=== PATIENT | female | born 1955 | race Hispanic/Latino ===

== ENCOUNTER 2017-02-07 09:05 | Outpatient (CLI) | payer OTHER ==
[2017-02-07 09:37] LABS: Hemoglobin A1c 5.8 % (4.0-6.0)
[2017-02-07 09:46] LABS: #Basophils 0.1 thou/uL (0.0-0.2); #Eosinphils 0.3 thou/uL (0.0-0.7); #Monocytes 0.5 thou/uL (0.11-0.59); #Neutrophils 4.1 thou/uL (1.40-6.50); %Basophils 1.5 % (0.0-1.0); %Eosinophils 4.1 % (0.0-10.0); %Lymphocytes 36.7 % (21.0-51.0); %Monocytes 6.4 % (0.0-10.0); %Neutrophils 51.3 % (42.0-75.0); Hemoglobin 13.6 g/dL (12.0-16.0); Mean Corpuscular HGB CONC 33.6 g/dL (32.0-36.0); Mean Corpuscular Hemoglobin 29.3 pg (27.0-31.0); Mean Corpuscular Volume 87.2 fl (81.0-99.0); Mean Platelet Volume 7.1 fL (7.4-10.4); Platelet Count 325 thou/uL (130-400); RBC Distribution Width 11.9 % (11.5-14.5); Red Blood Cell (RBC) Count 4.65 mill/uL (4.20-5.40); White Blood Cell (WBC) Count 8.1 thou/uL (4.8-10.8)
[2017-02-07 10:22] LABS: ALT (SGPT) 21 U/L (8-55); AST (SGOT) 17 U/L (5-34); Albumin 4.2 g/dL (3.5-5.0); Alkaline Phosphatase 88 U/L (40-150); Anion Gap 14 mmol/L (10-20); BUN (Urea Nitrogen) 17 mg/dL (9.8-20.1); Bilirubin, Total 0.5 mg/dL (0.2-1.2); Calc. Creatinine Clearance 0 mL/min (70-130); Calcium 9.2 mg/dL (7.8-10.44); Carbon Dioxide 25 mmol/L (22-29); Cardiac Risk 4.1 (Less than 4.5); Chloride 107 mmol/L (98-107); Cholesterol 199 mg/dl (< 200 Desired); Estimated GFR-MDRD 71; Globulin 3.4 g/dL (2.4-3.5); Glucose 104 mg/dL (70-105); HDL Cholesterol 48 mg/dL (>60 Neg Risk); LDL Cholesterol, Calculated 123 mg/dL; Potassium 4.2 mmol/L (3.5-5.1); Protein, Total 7.6 g/dL (6.0-8.3); Sodium 142 mmol/L (136-145); Triglycerides 140 mg/dL (Less than 150)
[2017-02-07 10:44] LABS: Free T4 (Free Thyroxine) 0.81 ng/dL (0.70-1.48); Thyroid Stimulating Hormone 2.8643 uIU/mL (0.35-4.94); Vitamin D, 25 Hydroxy 15.8 ng/ml (> 30.0)
== END 2017-02-07 09:06 | disposition home or self-care (01) ==
LOC: NAV LAB 09:05
PROVIDERS: ATTEND Family Medicine
DX: Z00.00 Encounter for general adult medical examination without abnormal findings (principal)
CPT/HCPCS: 36415; 80053; 80061; 82306; 83036; 84439; 84443; 85025

== ENCOUNTER 2018-10-25 13:20 | Emergency (ER) | payer OTHER ==
[2018-10-25] MEDS ORDERED: Acetaminophen 500 MG TAB ONE (13:37)
--- NOTE | 2018-10-25 14:12 | CT ---
CT BRAIN: 10/25/2018 PROVIDED CLINICAL HISTORY: Head pain, status post injury. FINDINGS: The ventricular system appears normal in size and morphology. There is no evidence for intracranial hemorrhage or mass effect. The extracranial soft tissues and osseous structures demonstrate an unrem arkable CT appearance. IMPRESSION: No evidence for intracranial hemorrhage or mass effect. POS: OFF
--- NOTE | 2018-10-25 14:14 | CT ---
CT CERVICAL SPINE: DATE: 10/25/2018. PROVIDED CLINICAL HISTORY: Neck pain status post injury. FINDINGS: Reversible of the normal cervical lordosis without evidence for fracture or traumatic subluxation. D isk degenerative changes at C5-6. No prevertebral soft tissue swelling apparent. Partially visualiz ed hamartoma involving the left lung apex. IMPRESSION: No evidence for a fracture or traumatic subluxation. POS: OFF
--- NOTE | 2018-10-25 14:19 | RAD ---
Exam:Left wrist 3 views HISTORY: Fall. Pain. COMPARISON: None FINDINGS: Intercarpal and radiocarpal joint spaces are preserved. Well-circumscribed ossific density projecting along the lateral proximal carpal row, likely due to remote injury. Acute fracture is not appreciated. IMPRESSION: 1. No definite fracture. Remote injury suspected. If there is pain or point tenderness, immobilizatio n follow-up imaging in 7-10 days.
--- NOTE | 2018-10-25 14:21 | RAD ---
Exam: One view pelvis HISTORY: Fall. Pain. FINDINGS: Sacroiliac are preserved. Intact bony pelvis. Contour of both femoral heads are maintained. Symmetric hip joint spaces. IMPRESSION: No fracture.
[2018-10-25] MEDS ORDERED: Ketorolac Tromethamine 60 MG/2 ML VIAL ONE (14:32)
[2018-10-25] MEDS ORDERED: Ondansetron ODT 4 MG TAB ONE (14:44)
[2018-10-25] MEDS ORDERED: Magnesium Sulfate 2 GM/NS 0.9% 50 ML BAG ONE (14:49)
== END 2018-10-25 15:25 | disposition home or self-care (01) ==
LOC: NAV ERS 13:20
DX: S06.0X0A Concussion without loss of consciousness, initial encounter (principal); S13.4XXA Sprain of ligaments of cervical spine, initial encounter; S63.502A Unspecified sprain of left wrist, initial encounter; J45.909 Unspecified asthma, uncomplicated; F32.9 Major depressive disorder, single episode, unspecified; Z79.51 Long term (current) use of inhaled steroids; W07.XXXA Fall from chair, initial encounter
CPT/HCPCS: 70450; 72125; 72170; 96372; J1885; J3475; Q0162

== ENCOUNTER 2018-10-26 17:31 | Emergency (ER) | payer OTHER ==
[~2018-10-26 17:31] MED LIST: Iopamidol 370 76% 100 ML VIAL ONE
[2018-10-26] MEDS ORDERED: Acetaminophen 500 MG TAB ONE (17:38)
[2018-10-26 18:02] LABS: #Basophils 0.1 thou/uL (0.0-0.2); #Lymphocytes 1.9 thou/uL (1.20-3.40); #Monocytes 0.9 thou/uL (0.11-0.59); #Neutrophils 12.4 thou/uL (1.40-6.50); %Basophils 0.7 % (0.0-1.0); %Eosinophils 0.1 % (0.0-10.0); %Lymphocytes 12.2 % (21.0-51.0); %Monocytes 5.7 % (0.0-10.0); %Neutrophils 81.3 % (42.0-75.0); Differential Comment SCANNED; Hemoglobin 14.2 g/dL (12.0-16.0); Mean Corpuscular HGB CONC 32.6 g/dL (32.0-36.0); Mean Corpuscular Volume 88.7 fL (78.0-98.0); Mean Platelet Volume 6.6 fL (7.4-10.4); Platelet Count 293 thou/uL (130-400); RBC Distribution Width 12.4 % (11.5-14.5); White Blood Cell (WBC) Count 15.3 thou/uL (4.8-10.8)
--- NOTE | 2018-10-26 18:03 | CT ---
CT Brain WO Con History: [Fall. Nausea.] Comparison: CT brain prior day Findings: There is no acute hemorrhage or infarct. No midline shift or mass effect. Ventricular size and extra-axial CSF spaces are normal. The calvarium is intact. Paranasal sinuses and mastoids are clear. Impression: No acute intracranial abnormality.
[2018-10-26 18:12] LABS: ALT (SGPT) 63 U/L (8-55); AST (SGOT) 47 U/L (5-34); Albumin 4.1 g/dL (3.4-4.8); Alkaline Phosphatase 114 U/L (40-150); Anion Gap 16 mmol/L (10-20); BUN (Urea Nitrogen) 14 mg/dL (9.8-20.1); Bilirubin, Total 0.6 mg/dL (0.2-1.2); Calc. Creatinine Clearance 0 mL/min (70-130); Calcium 9.1 mg/dL (7.8-10.44); Carbon Dioxide 20 mmol/L (23-31); Chloride 104 mmol/L (98-107); Estimated GFR-MDRD 81; Globulin 3.5 g/dL (2.4-3.5); Glucose 119 mg/dL (80-115); Potassium 4.3 mmol/L (3.5-5.1); Protein, Total 7.6 g/dL (6.0-8.3); Sodium 136 mmol/L (136-145)
[2018-10-26] MEDS ORDERED: Sodium Chloride 0.9% 1,000 ML ONE ×2 (18:38→21:05)
[2018-10-26] MEDS ORDERED: Ondansetron PF 4 MG/2 ML Vial ONE ×2 (18:55→19:48)
[2018-10-26 18:56] LABS: Bilirubin Negative (Negative); Blood, Urine Moderate (Negative); Clarity Clear (Clear); Glucose, Urine (Dipstick) Negative (Negative); Leukocyte Trace (Negative); Nitrite Negative (Negative); Protein, Urine (Dipstick) 30 mg/dL (Neg-Trace); Specific Gravity, Urine 1.015 (1.005-1.030); Urobilinogen 0.2 mg/dL (0.2-1.0)
[2018-10-26 19:11] LABS: Squamous Epithelial 0-3 HPF (0-3); WBC/HPF 0-3 HPF (0-3)
[2018-10-26] MEDS ORDERED: cefTRIAXone\\ROCEPHIN 2 GM VIAL ONE (19:17)
[2018-10-26] MEDS ORDERED: Sodium Chloride 0.9% 100 ML ONE (19:17)
[2018-10-26] MEDS ORDERED: Sodium Chloride 0.9% 250 ML 250 ML ONE (19:17)
[2018-10-26 20:40] LABS: Color Of CSF Supernatant COLORLESS (Colorless); Tube # 2; Unspun CSF Color COLORLESS (Colorless)
[2018-10-26] MEDS ORDERED: Morphine 4 MG/ML VIAL ONE (20:44)
[2018-10-26 20:52] LABS: CSF, Glucose 65 mg/dl (40-70); CSF, Protein 33 mg/dL (15-40)
[2018-10-26 21:14] LABS: CSF Source CSF; Clarity Clear (Clear); Tube # 1
[2018-10-26 21:15] LABS: RBC Count - Manual 477 /cumm (None Seen); WBC/NonHematics Count - Manual 3 /cumm (0-5)
[2018-10-26 21:22] LABS: CSF Source CSF; Clarity Clear (Clear); RBC Count - Manual 9 /cumm (None Seen); Tube # 4; WBC/NonHematics Count - Manual 1 /cumm (0-5)
--- NOTE | 2018-10-26 21:36 | CT ---
CT Abdomen Pelvis W Con History: [Septic with lower abdominal pain.] Comparison: None. Findings: Lung bases are clear. No pericardial effusion. Small fat-containing periumbilical hernia. There is diverticular disease of the sigmoid colon with some active inflammation. Mild inflammatory c hange around the sigmoid colon near the rectosigmoid junction. Appendix is visualized and is normal. No retroperitoneal adenopathy. Liver, spleen, adrenal glands are unremarkable. There is cholelithiasis without cholecystitis. Lumbos acral transitional vertebra. No acute osseous abnormality. Impression: Low-grade low sigmoid diverticulitis, uncomplicated. No evidence of a contained perforati on or abscess.
[2018-10-26] MEDS ORDERED: Meropenem 500 MG VIAL ONE (22:10)
--- NOTE | 2018-10-26 22:26 | RAD ---
XR Chest 1 View Portable History: [Fever] Comparison: Radiograph 2017 Findings: Lungs are hypoinflated. No pneumothorax. No effusion. No consolidation. No acute osseous ab normality. Impression: No acute intrathoracic abnormality.
== END 2018-10-26 22:27 | disposition short-term general hospital (02) ==
LOC: NAV ERS 17:31
DX: A41.9 Sepsis, unspecified organism (principal); J45.909 Unspecified asthma, uncomplicated; F32.9 Major depressive disorder, single episode, unspecified; Z79.51 Long term (current) use of inhaled steroids
CPT/HCPCS: 62270; 70450; 71045; 74177; 80053; 81003; 81015; 82945; 83605; 84157; 85025; 87040; 87070; 87086; 87205; 87804; 89051; 93005; 96361; 96365; 96366; 96367; 96375; 96376; J0696; J2185; J2270; J2405; J3370; J3490; J7050; Q9967

== ENCOUNTER 2019-03-19 22:04 | Emergency (ER) | payer OTHER ==
[2019-03-19] MEDS ORDERED: Ketorolac Tromethamine 30 MG/ML VIAL ONE (22:20)
[2019-03-19] MEDS ORDERED: HYDROcodone/Acetaminophen 5/325 mg Tablet ONE (22:20)
[2019-03-19] MEDS ORDERED: Dexamethasone 20 MG/5 ML VIAL ONE (22:20)
== END 2019-03-19 22:40 | disposition home or self-care (01) ==
LOC: NAV ERS 22:04
DX: M54.5 Low back pain (principal); I10 Essential (primary) hypertension; J45.909 Unspecified asthma, uncomplicated; F32.9 Major depressive disorder, single episode, unspecified; Z79.899 Other long term (current) drug therapy; Z79.51 Long term (current) use of inhaled steroids
CPT/HCPCS: 96372; 99283; J1100; J1885

== ENCOUNTER 2020-05-16 09:23 | Emergency (ER) | payer OTHER ==
[2020-05-16] MEDS ORDERED: Ondansetron ODT 4 MG TAB ONE (10:11)
[2020-05-16 10:13] LABS: #Eosinphils 0.1 thou/uL (0.0-0.7); #Lymphocytes 2.3 thou/uL (1.20-3.40); #Monocytes 0.6 thou/uL (0.11-0.59); #Neutrophils 2.5 thou/uL (1.40-6.50); %Basophils 0.5 % (0.0-1.0); %Eosinophils 1.4 % (0.0-10.0); %Lymphocytes 41.7 % (21.0-51.0); %Monocytes 10.2 % (0.0-10.0); %Neutrophils 46.1 % (42.0-75.0); Hemoglobin 14.3 g/dL (12.0-16.0); Mean Corpuscular HGB CONC 33.1 g/dL (32.0-36.0); Mean Corpuscular Hemoglobin 29.6 pg (27.0-31.0); Mean Corpuscular Volume 89.3 fL (78.0-98.0); Mean Platelet Volume 7.1 fL (7.4-10.4); Platelet Count 213 thou/uL (130-400); RBC Distribution Width 11.6 % (11.5-14.5); Red Blood Cell (RBC) Count 4.84 mill/uL (4.20-5.40); White Blood Cell (WBC) Count 5.4 thou/uL (4.8-10.8)
[2020-05-16 10:30] LABS: ALT (SGPT) 28 U/L (8-55); AST (SGOT) 19 U/L (5-34); Alkaline Phosphatase 82 U/L (40-110); Anion Gap 14 mmol/L (10-20); BUN (Urea Nitrogen) 14 mg/dL (9.8-20.1); Bilirubin, Total 0.3 mg/dL (0.2-1.2); Calc. Creatinine Clearance 0 mL/min (70-130); Calcium 8.2 mg/dL (7.8-10.44); Carbon Dioxide 23 mmol/L (23-31); Chloride 106 mmol/L (98-107); Estimated GFR-MDRD Greater than 90; Globulin 2.9 g/dL (2.4-3.5); Glucose 110 mg/dL (80-115); Protein, Total 6.9 g/dL (6.0-8.3); Sodium 139 mmol/L (136-145)
--- NOTE | 2020-05-16 10:52 | RAD ---
CHEST 1 VIEW: DATE: 05/16/2020. TIME: 10:38 AM. HISTORY: Chest pain, cough. COMPARISON: 10/26/2018. FINDINGS: The heart size is normal. No lobar consolidation, pneumothoraces, or pleural effusions are seen. IMPRESSION: No acute process. POS: XIME[facility]
== END 2020-05-16 11:10 | disposition home or self-care (01) ==
LOC: NAV ERS 09:23
DX: U07.1 COVID-19 (principal); J45.909 Unspecified asthma, uncomplicated; F32.9 Major depressive disorder, single episode, unspecified; Z79.899 Other long term (current) drug therapy; Z79.82 Long term (current) use of aspirin
CPT/HCPCS: 71045; 80053; 83605; 84484; 85025; 85379; 93005; 94760; Q0162

== ENCOUNTER 2021-08-14 10:50 | Emergency (ER) | payer BC, OTHER ==
[2021-08-14] MEDS ORDERED: Ibuprofen 800 MG TAB ONE (11:27)
[2021-08-14] MEDS ORDERED: Acetaminophen 500 MG TAB ONE (11:27)
== END 2021-08-14 11:56 | disposition home or self-care (01) ==
LOC: NAV ERS 10:50
DX: S63.502A Unspecified sprain of left wrist, initial encounter (principal); S33.5XXA Sprain of ligaments of lumbar spine, initial encounter; J45.909 Unspecified asthma, uncomplicated; Z79.899 Other long term (current) drug therapy; X50.9XXA Other and unspecified overexertion or strenuous movements or postures, initial encounter

== ENCOUNTER 2022-07-27 06:31 | Emergency (ER) | payer BC, OTHER ==
[2022-07-27] MEDS ORDERED: Cyclobenzaprine 10 MG TAB ONE (07:36)
[2022-07-27] MEDS ORDERED: Ibuprofen 200 MG TAB ONE (07:36)
== END 2022-07-27 10:35 | disposition home or self-care (01) ==
LOC: NAV ERS 06:31
DX: S93.401A Sprain of unspecified ligament of right ankle, initial encounter (principal); S20.212A Contusion of left front wall of thorax, initial encounter; S00.93XA Contusion of unspecified part of head, initial encounter; Y04.8XXA Assault by other bodily force, initial encounter
CPT/HCPCS: 70450; 72125; 72131; 72192

== ENCOUNTER 2023-05-09 09:12 | Outpatient (CLI) | payer BC | END 2023-05-09 09:13 | disposition home or self-care (01) | LOC: NAV CT 09:12 | PROVIDERS: ATTEND Surgery | DX: K43.9 Ventral hernia without obstruction or gangrene (principal); K42.9 Umbilical hernia without obstruction or gangrene; K76.0 Fatty (change of) liver, not elsewhere classified; K57.30 Diverticulosis of large intestine without perforation or abscess without bleeding | CPT/HCPCS: 74177; Q9967 ==